=== PATIENT | male | born 1975 | race African-American/Black ===

== ENCOUNTER 2022-12-11 20:23 | Observation (INO) | payer OTHER, SELFPAY ==
[~2022-12-11 20:23] MED LIST: Iopamidol-370 76% 500 ML MDV (1 ML CHARGE) ONE
[2022-12-11] MEDS ORDERED: Ketorolac Tromethamine 30 MG/ML VIAL ONE (20:53)
[2022-12-11] MEDS ORDERED: Famotidine/PF 20 mg/2ml Vial ONE (20:53)
[2022-12-11 21:15] LABS: #Basophils 0.1 thou/uL (0.0-0.2); #Eosinphils 0.2 thou/uL (0.0-0.7); #Monocytes 0.5 thou/uL (0.11-0.59); #Neutrophils 4.7 thou/uL (1.40-6.50); %Basophils 0.6 % (0.0-1.0); %Eosinophils 2.2 % (0.0-10.0); %Lymphocytes 35.2 % (21.0-51.0); %Neutrophils 55.8 % (42.0-75.0); Hematocrit 41.6 % (42.0-52.0); Hemoglobin 14.4 g/dL (14.0-18.0); Mean Corpuscular HGB CONC 34.6 g/dL (32.0-36.0); Mean Corpuscular Hemoglobin 29.4 pg (27.0-31.0); Mean Corpuscular Volume 85.1 fl (78.0-98.0); Mean Platelet Volume 9.5 fL (7.4-10.4); Platelet Count 242 10x3/uL (130-400); RBC Distribution Width 12.9 % (11.5-14.5); Red Blood Cell (RBC) Count 4.89 mill/uL (4.70-6.10); White Blood Cell (WBC) Count 8.5 10x3/uL (4.8-10.8)
[2022-12-11 21:38] LABS: ALT (SGPT) 13 U/L (8-55); AST (SGOT) 17 U/L (5-34); Albumin 3.2 g/dL (3.5-5.0); Alkaline Phosphatase 109 U/L (40-110); Anion Gap 9 mmol/L (10-20); BUN (Urea Nitrogen) 16 mg/dL (8.9-20.6); Bilirubin, Total 0.2 mg/dL (0.2-1.2); Calc. Creatinine Clearance 0 mL/min (70-130); Calcium 8.5 mg/dL (7.8-10.44); Carbon Dioxide 33 mmol/L (22-29); Chloride 104 mmol/L (98-107); Estimated GFR 44; Globulin 3.2 g/dL (2.4-3.5); Glucose 176 mg/dL (70-105); Potassium 3.7 mmol/L (3.5-5.1); Protein, Total 6.4 g/dL (6.0-8.3); Sodium 142 mmol/L (136-145)
[2022-12-11 21:41] LABS: Troponin I Less than 0.010 ng/mL (< 0.028)
[2022-12-12] MEDS ORDERED: Nitroglycerin 2% Ointment 1 INCH/1 GM Packet ONE (00:13)
[2022-12-12] MEDS ORDERED: Aspirin Chewable 81 MG TAB ONE (00:13)
[2022-12-12] MEDS ORDERED: Acetaminophen 325 MG TAB PO PRN (00:19)
[2022-12-12] MEDS ORDERED: Ondansetron ODT 4 MG TAB PO PRN (00:19)
[2022-12-12] MEDS ORDERED: Nitroglycerin 0.4 MG TAB (25 Tab Bottle) SL PRN (00:19)
[2022-12-12] MEDS ORDERED: Ondansetron PF 4 MG/2 ML Vial IVP PRN (00:19)
[2022-12-12] MEDS ORDERED: Labetalol HCl 100 MG/20 ML VIAL SLOW IVP SCH (00:45)
[2022-12-12] MEDS ORDERED: Sodium Chloride 0.9% 1,000 ML IV SCH (00:45)
[2022-12-12] MEDS ORDERED: HumaLOG 300 UNITS/3 ML VIAL SC PRN ×2 (01:01)
[2022-12-12] MEDS ORDERED: Dextrose 5% in Water 1,000 ML IV PRN (01:01)
[2022-12-12] MEDS ORDERED: Dextrose 50% Abboject 50 ML SYRINGE SLOW IVP PRN (01:01)
[2022-12-12] MEDS ORDERED: Glucagon 1 MG/ML KIT IM PRN (01:01)
[2022-12-12 01:42] LABS: Troponin I Less than 0.010 ng/mL (< 0.028)
[2022-12-12 02:57] VITALS: BP 149/77; TEMP 98.5
[2022-12-12] MEDS ORDERED: Famotidine 20 MG TAB PO SCH (09:00)
== END 2022-12-12 04:33 | disposition left against medical advice (07) ==
LOC: ERS 20:23 → ERHOLD 23:17
PROVIDERS: ADMIT Student in an Organized Health Care Education/Training Program; ATTEND Student in an Organized Health Care Education/Training Program
DX: R07.9 Chest pain, unspecified (principal); N17.9 Acute kidney failure, unspecified; E11.9 Type 2 diabetes mellitus without complications; I16.0 Hypertensive urgency; I10 Essential (primary) hypertension; F17.210 Nicotine dependence, cigarettes, uncomplicated; Z79.4 Long term (current) use of insulin; Z79.84 Long term (current) use of oral hypoglycemic drugs; Z86.718 Personal history of other venous thrombosis and embolism
CPT/HCPCS: 36415; 71045; 71275; 74174; 80053; 83880; 84484; 85025; 85379; 93005; 96361; 96374; 96375; G0378; J1885; J7050; Q9967; S0028

== ENCOUNTER 2025-04-23 09:23 | Inpatient (IN) | payer MEDICAID, OTHER ==
[2025-04-23] MEDS ORDERED: Iopamidol-370 76% 500 ML MDV (1 ML CHARGE) ONE (09:44)
[2025-04-23] MEDS ORDERED: Ondansetron PF 4 MG/2 ML Vial ONE (10:56)
[2025-04-23 11:01] LABS: #Basophils Less than 0.03 10x3/uL (0.0-0.2); #Eosinophils 0.17 10x3/uL (0.0-0.7); #Monocytes 0.28 10x3/uL (0.11-0.59); #Neutrophils 3.57 10x3/uL (1.40-6.50); %Basophils 0.4 % (0.0-1.0); %Eosinophils 3.5 % (0.0-10.0); %Lymphocytes 16.7 % (21.0-51.0); %Monocytes 5.8 % (0.0-10.0); %Neutrophils 73.4 % (42.0-75.0); Hematocrit 37.0 % (42.0-52.0); Hemoglobin 11.8 g/dL (14.0-18.0); Mean Corpuscular Hemoglobin 29.1 pg (27.0-31.0); Mean Corpuscular Volume 91.1 fL (78.0-98.0); Platelet Count 203 10x3/uL (130-400); Red Blood Cell (RBC) Count 4.06 mill/uL (4.70-6.10); White Blood Cell (WBC) Count 4.86 10x3/uL (4.8-10.8)
[2025-04-23 11:55] LABS: ALT (SGPT) Less than 7 U/L (Less than 45); AST (SGOT) 24 U/L (11-34); Albumin 4.1 g/dL (3.1-4.5); Alkaline Phosphatase 65 U/L (40-110); Anion Gap 21 mmol/L (10-20); BUN (Urea Nitrogen) 31 mg/dL (8.9-20.6); Bilirubin, Total 0.6 mg/dL (0.3-1.2); Calc. Creatinine Clearance 0 mL/min (70-130); Calcium 8.6 mg/dL (7.8-10.44); Carbon Dioxide 25 mmol/L (22-29); Chloride 101 mmol/L (98-107); Globulin 3.5 g/dL (2.4-3.5); Glucose 124 mg/dL (70-105); Lipase 9 U/L (8-78); Potassium 4.5 mmol/L (3.5-5.1); Sodium 142 mmol/L (136-145)
[2025-04-23] MEDS ORDERED: Guaifenesin DM 100-10/5 ML UDCUP PO PRN (13:50)
[2025-04-23] MEDS ORDERED: Aspirin 81 mg Enteric Coated Tablet ONE ×2 (13:50→13:51)
[2025-04-23] MEDS ORDERED: hydrALAZINE 20 MG/ML VIAL ONE (13:50)
[2025-04-23] MEDS ORDERED: Ondansetron PF 4 MG/2 ML Vial IVP PRN (13:50)
[2025-04-23] MEDS ORDERED: Glucagon 1 MG/ML KIT IM PRN (13:53)
[2025-04-23] MEDS ORDERED: Dextrose 50% Abboject 50 ML SYRINGE SLOW IVP PRN (13:53)
[2025-04-23] MEDS ORDERED: Acetaminophen 325 MG TAB ONE (14:26)
[2025-04-23] MEDS: Acetaminophen 325 MG TAB PO SCH (14:28)
[2025-04-23] MEDS: NIFEdipine XL 60 MG ER.TAB PO SCH (14:29)
[2025-04-23 16:35] VITALS: BMI 35.6
[2025-04-23] MEDS: Heparin 5,000 UNITS/ML VIAL SC SCH (20:03)
[2025-04-23] MEDS: Senokot S 8.6-50 MG TAB PO PRN (20:11)
[2025-04-23] MEDS: Simethicone Chewable 80 MG TAB PO PRN (21:19)
[2025-04-24 03:51] LABS: Bacteria/HPF None Seen HPF (None Seen); Glucose, Urine (Dipstick) 50 mg/dL (Negative); Leukocyte Negative Leu/uL (Negative); Protein, Urine (Dipstick) 300 mg/dL (Neg-Trace); RBC/HPF None Seen HPF (0-3); Specific Gravity, Urine 1.020 (1.002-1.036); WBC/HPF 0-3 HPF (0-3)
[2025-04-24 05:12] LABS: #Basophils Less than 0.03 10x3/uL (0.0-0.2); #Eosinophils 0.23 10x3/uL (0.0-0.7); #Monocytes 0.45 10x3/uL (0.11-0.59); #Neutrophils 2.43 10x3/uL (1.40-6.50); %Basophils 0.2 % (0.0-1.0); %Eosinophils 5.5 % (0.0-10.0); %Lymphocytes 24.9 % (21.0-51.0); %Monocytes 10.8 % (0.0-10.0); %Neutrophils 58.1 % (42.0-75.0); Hematocrit 31.3 % (42.0-52.0); Hemoglobin 9.8 g/dL (14.0-18.0); Mean Corpuscular Hemoglobin 29.1 pg (27.0-31.0); Mean Corpuscular Volume 92.9 fL (78.0-98.0); Platelet Count 189 10x3/uL (130-400); Red Blood Cell (RBC) Count 3.37 mill/uL (4.70-6.10); White Blood Cell (WBC) Count 4.18 10x3/uL (4.8-10.8)
[2025-04-24 05:32] LABS: Anion Gap 18 mmol/L (10-20); BUN (Urea Nitrogen) 34 mg/dL (8.9-20.6); Calc. Creatinine Clearance 11 mL/min (70-130); Calcium 8.0 mg/dL (7.8-10.44); Carbon Dioxide 24 mmol/L (22-29); Chloride 102 mmol/L (98-107); Glucose 149 mg/dL (70-105); Potassium 4.0 mmol/L (3.5-5.1); Sodium 140 mmol/L (136-145)
[2025-04-24 08:39] LABS: HBSAB Concentration Less than 8.00 mIU/mL; Hep B Core Total Ab NONREACTIVE (NonReactive); Hep B Core Total Index 0.05 S/CO (0-0.79); Hep B Surf Ag NONREACTIVE S/CO (NonReactive); Hep C IgG Ab NONREACTIVE S/CO (NonReactive); Hep C Index 0.06 S/CO (0-0.79)
[2025-04-24 08:47] VITALS: TEMP 97.8
[2025-04-24] MEDS: NIFEdipine XL 60 MG ER.TAB PO SCH (08:58)
[2025-04-24] MEDS: Sertraline 25 MG TAB PO SCH (09:33)
[2025-04-24] MEDS: Losartan 25 MG TAB PO SCH (16:15)
[2025-04-24] MEDS: Lactulose 20 GM (30 mL) UDCUP PO SCH (16:16)
[2025-04-24 16:18] VITALS: BP 147/81
[2025-04-24] MEDS ORDERED: Sertraline 25 MG TAB PO SCH (21:00)
[2025-04-25] MEDS ORDERED: Losartan 25 MG TAB PO SCH (09:00)
[2025-04-25] MEDS ORDERED: Non-Formulary Item 1 EACH (Losartan Potassium [Cozaar] 100 MG Tablet) PO SCH (09:00)
== END 2025-04-24 18:04 | disposition home or self-care (01) | DRG 304 ==
LOC: ERS 09:23 → ERHOLD 13:33 → OBS 16:29
PROVIDERS: ADMIT Hospitalist; ATTEND Internal Medicine
DX: I16.1 Hypertensive emergency (principal); N18.6 End stage renal disease; I5A Non-ischemic myocardial injury (non-traumatic); I24.89 Other forms of acute ischemic heart disease; I12.0 Hypertensive chronic kidney disease with stage 5 chronic kidney disease or end stage renal disease; E11.22 Type 2 diabetes mellitus with diabetic chronic kidney disease; Z98.890 Other specified postprocedural states; Z83.3 Family history of diabetes mellitus; Z82.49 Family history of ischemic heart disease and other diseases of the circulatory system; D63.1 Anemia in chronic kidney disease; K59.00 Constipation, unspecified; Z79.4 Long term (current) use of insulin; G47.33 Obstructive sleep apnea (adult) (pediatric); Z99.2 Dependence on renal dialysis; I16.0 Hypertensive urgency; F41.9 Anxiety disorder, unspecified; Z87.891 Personal history of nicotine dependence; F32.9 Major depressive disorder, single episode, unspecified; R10.31 Right lower quadrant pain; Z79.899 Other long term (current) drug therapy
CPT/HCPCS: 36415; 36416; 71045; 74174; 76705; 80048; 80053; 81001; 83690; 84484; 85025; 86141; 86704; 86706; 86803; 87340; 90935; 93005; 93010; 96374; 96375; 96376; G0257; J0360; J1644; J1815; J2270; J2405; Q9967